=== PATIENT | male | born 1980 | race Caucasian/White ===

== ENCOUNTER 2023-12-28 06:50 | Day surgery (SDC) | payer BC ==
[2023-12-22 14:34] VITALS: BP 139/82
[~2023-12-28] VITALS: Ht 175.3 cm; Wt 115.9 kg
[~2023-12-28 06:50] MED LIST: FLONASE ALLERG9.9 ML; GLIPIZIDE XL10 MG PO; HYDROXYZINE HCL25 MG PO; LABETALOL HCL100 MG PO; LOSARTAN-HCTZ1 EAC2 PO; METAMUCIL FIBER2 GM PO; METFORMIN HCL500 M3 PO; MULTI VITAMIN1 EACH PO; NORVASC10 MG PO; ONDANSETRON ODT8 MG PO; PRILOSEC OTC20 MG PO; SINGULAIR10 MG PO; SUPER B MAXI C0.4 MG PO; propofoL 200 MG/20 ML VIAL ONE
[2023-12-28] MEDS ORDERED: LIDOCAINE HCL 1% 5 ML SDV INJ ONE (07:00)
[2023-12-28] MEDS ORDERED: LACTATED RINGER'S 1,000 ML IV SCH (07:00)
[2023-12-28] MEDS ORDERED: IBLOOD GLUCOSE TEST STRIP 1 EA TEST VI PRN (07:00)
[2023-12-28 07:04] VITALS: BP 149/85
[2023-12-28] MEDS ORDERED: OZEMPIC2 MG/0.75 SUB-Q (07:07)
[2023-12-28] MEDS ORDERED: ALLEGRA ALLERG180 MG PO (07:08)
[2023-12-28] MEDS ORDERED: LACTATED RINGER'S 1,000 ML IV ONE (08:13)
[2023-12-28 08:56] VITALS: BP 139/94
--- NOTE | 2023-12-28 10:46 | OR ---
[facility] [address], [place] [address] Signed DATE OF OPERATION: 12/28/2023 SURGEON: Antoinette Lugo MD He is having anal pain and pressure during intercourse. He had complained of hemorrhoids. He is wondering if his hemorrhoids needed to be removed. He said he has no family history of colon cancer or polyps. He has been on Ozempic and that has helped him lose some weight. In the office, I gave him a pamphlet on colonoscopy. We had reviewed that together. He understands the nature of the test. There is risk including, but not limited to gas bloating, crampy abdominal pain, bleeding, perforation requiring surgery, and missed diagnosis. We also reviewed the written instructions for a bowel prep line by line. We had him hold the Ozempic one week prior to the procedure. Also because of his large size with a full round face, heavy neck, chest and abdomen, we asked for monitored anesthesia care with propofol infusion. That proved to be a otero decision. He was close to needing an LMA for airway management. He also took a large amount of propofol today consistent with his marijuana use. He had expressed understanding and wished to proceed. DESCRIPTION OF PROCEDURE: Shannon was taken into our endoscopy suite and placed in the left lateral decubitus position. He was given monitored anesthesia care with propofol infusion per our nurse preforming machine operator. A digital rectal exam was performed and he has some small bilateral external hemorrhoids. He has excellent sphincter tone. I could not feel any masses. He seem to have pain on digital rectal exam. The adult colonoscope was introduced and advanced under direct visualization of the camera without difficulty. His prep was quite excellent. We could easily see his appendiceal orifice and ileocecal valve. We took pictures throughout for photodocumentation. The scope was then slowly withdrawn. He does have a few tiny diverticula starting in the sigmoid colon. They are quite small, few in number and scattered about. He had one small polyp about 5 mm in diameter at 40 cm in his left colon. It was easily biopsied and destroyed completely with the hot biopsy forceps. The rectum itself was unremarkable. Upon retroflexion of the scope, he has minimal internal hemorrhoid tissue. After this, the gas was suctioned out and the colonoscope removed. Shannon tolerated the procedure quite well. RECOMMENDATIONS: Shannon will follow up in my office in 1 to 2 weeks to review his results. We did do an exam in 2019, but we could repeat that currently as well. Electronically Signed By: ANTOINETTE LUGO MD 12/28/23 1046 PATIENT NAME: SHANNON MUHAMMAD OPERATIVE REPORT DATE OF : 76 REPORT #: [id number] PHYSICIAN: ANTOINETTE LUGO MD PCP: LYUDMILA JUAN MD REPORT IS CONFIDENTIAL AND NOT TO BE RELEASED WITHOUT AUTHORIZATION [address] [address] Signed Antoinette Lugo MD ALB/MODL /[id number] cc: MD Antoinette Mendez MD Copies: LYUDMILA JUAN MD, ANDREW L MD ~ Electronically Signed By: ANTOINETTE LUGO MD 12/28/23 1046 PATIENT NAME: SHANNON MUHAMMAD OPERATIVE REPORT DATE OF : 76 REPORT #: [id number] PHYSICIAN: ANTOINETTE LUGO MD PCP: LYUDMILA JUAN MD REPORT IS CONFIDENTIAL AND NOT TO BE RELEASED WITHOUT AUTHORIZATION
--- NOTE | 2024-01-02 14:17 | PATH ---
[facility] [address] [place], [place] [address] Signed SPECIMEN(S): A DESCENDING POLYP, 40 CM SPECIMEN SOURCE: A. DESCENDING POLYP, 40 CM CLINICAL HISTORY: Anemia; hemorrhoids; anal pain. FINAL PATHOLOGIC DIAGNOSIS: Descending colon polyp at 40 cm: - Tubular adenoma (one fragment). KellieVR:keisha MICROSCOPIC EXAMINATION: Histologic sections of all submitted blocks are examined by light microscopy. These findings, together with the gross examination, support the pathologic diagnosis. GROSS DESCRIPTION: The specimen, labeled and designated "Logan, descending colon polyp at 40 cm," is received in formalin and consists of one wong soft tissue fragment, 0.1 cm. Entirely submitted in (A1). JS (under the direct supervision of a pathologist) The Gross Description was prepared using a voice recognition system. The report was reviewed for accuracy; however, sound-alike word errors, addition and/or deletions may occur. If there is any question about this report, please contact Client Services. ADDITIONAL NOTES: Immunohistochemical and/or in situ hybridization studies if performed in this case included appropriate positive controls that reacted as expected. This test was developed and its performance characteristics determined by [facility]. It has not been cleared or approved by the U.S. Food and Drug Administration. The FDA has determined that such clearance or approval is not necessary. This test is used for clinical purposes. It should not be regarded as investigational or for research. [facility] is certified under the Clinical Laboratory Improvement Amendments of 1988 (CLIA) as qualified to perform high complexity clinical laboratory testing. PATIENT NAME: SHANNON LOGAN PATHOLOGY DATE OF : 76 REPORT #: [id number] PHYSICIAN: DANETTE CONCEPCION PCP: LYUDMILA JUAN MD REPORT IS CONFIDENTIAL AND NOT TO BE RELEASED WITHOUT AUTHORIZATION [address] [place], [place] [address] Signed PERFORMING LABORATORY: Technical component was performed by [facility], [address] [place] [address] (CLIA# [id number]). Professional interpretation was performed by [facility] [address] [address] (CLIA#: [id number]). Diagnostician: Mitesh Trevino MD Pathologist Electronically Signed 01/02/2024 Copies: ~ PATIENT NAME: SHANNON LOGAN PATHOLOGY DATE OF : 76 REPORT #: [id number] PHYSICIAN: DANETTE CONCEPCION PCP: LYUDMILA JUAN MD REPORT IS CONFIDENTIAL AND NOT TO BE RELEASED WITHOUT AUTHORIZATION
== END 2023-12-28 09:02 | disposition home or self-care (01) ==
LOC: OPS 06:50 → DS 06:50 → OPS 08:30
PROVIDERS: ATTEND Colon & Rectal Surgery
PROC: 0DBG8ZX Excision of Left Large Intestine, Via Natural or Artificial Opening Endoscopic, Diagnostic (ICD-10-PCS; principal; 2023-12-28 08:30)
DX: K64.8 Other hemorrhoids (principal); K64.4 Residual hemorrhoidal skin tags; D12.4 Benign neoplasm of descending colon; K63.5 Polyp of colon; E11.9 Type 2 diabetes mellitus without complications; I10 Essential (primary) hypertension; E66.9 Obesity, unspecified; Z68.38 Body mass index [BMI] 38.0-38.9, adult; Z79.84 Long term (current) use of oral hypoglycemic drugs; Z79.899 Other long term (current) drug therapy; Z88.8 Allergy status to other drugs, medicaments and biological substances
CPT/HCPCS: 00811; J2704; J7121